=== PATIENT | male | born 1945 | race Caucasian/White ===

== ENCOUNTER 2023-10-06 20:51 | Emergency (ER) | payer BC ==
[~2023-10-06] VITALS: Ht 175.3 cm; Wt 79.4 kg
[2023-10-06] MEDS ORDERED: IBUPROFEN 600 MG TABLET ONE (22:49)
[2023-10-06] MEDS: IBUPROFEN 600 MG TABLET PO ONE (22:53)
[2023-10-07 00:16] VITALS: BP 121/73; TEMP 98.2; O2SAT 95
== END 2023-10-07 00:17 | disposition home or self-care (01) ==
LOC: ER 21:52
DX: S70.01XA Contusion of right hip, initial encounter (principal); S09.8XXA Other specified injuries of head, initial encounter; G20.A1 Parkinson's disease without dyskinesia, without mention of fluctuations; E78.5 Hyperlipidemia, unspecified; I10 Essential (primary) hypertension; Z60.2 Problems related to living alone; W18.39XA Other fall on same level, initial encounter; Y93.89 Activity, other specified; Y92.89 Other specified places as the place of occurrence of the external cause; Y99.8 Other external cause status
CPT/HCPCS: 70450-TC; 73502

== ENCOUNTER 2023-10-09 21:58 | Emergency (ER) | payer MEDICARE, OTHER ==
[~2023-10-09] VITALS: Ht 172.7 cm; Wt 79.4 kg
[2023-10-09 22:46] VITALS: BP 116/74; TEMP 98.1; O2SAT 94
== END 2023-10-10 02:17 | disposition home or self-care (01) ==
LOC: ER 22:02
DX: S29.8XXA Other specified injuries of thorax, initial encounter (principal); I10 Essential (primary) hypertension; E78.5 Hyperlipidemia, unspecified; X58.XXXA Exposure to other specified factors, initial encounter; Y93.89 Activity, other specified; Y92.89 Other specified places as the place of occurrence of the external cause; Y99.8 Other external cause status
CPT/HCPCS: 71250-TC